=== PATIENT | male | born 1990 | race Caucasian/White ===

== ENCOUNTER 2018-08-21 15:07 | Emergency (ER) | payer OTHER ==
[~2018-08-21] VITALS: Ht 177.8 cm; Wt 106.1 kg
[2018-08-21 15:15] VITALS: BP 132/83
[2018-08-21] MEDS ORDERED: NORCO 5-325 TA1 EACH PO ×2 (15:18→15:27)
[2018-08-21] MEDS ORDERED: IBUPROFEN 800800 MG PO (15:27)
== END 2018-08-21 15:38 | disposition home or self-care (01) ==
LOC: M.ERS 15:07
DX: S62.91XA Unspecified fracture of right hand, initial encounter for closed fracture (principal); W22.8XXA Striking against or struck by other objects, initial encounter; Y93.89 Activity, other specified; Y92.89 Other specified places as the place of occurrence of the external cause; Y99.8 Other external cause status

== ENCOUNTER 2019-07-19 20:06 | Emergency (ER) | payer OTHER ==
[~2019-07-19] VITALS: Ht 180.3 cm; Wt 97.1 kg
[~2019-07-19 20:06] MED LIST: IBUPROFEN 800800 MG PO; NORCO 5-325 TA1 EACH PO
[2019-07-19] MEDS ORDERED: AUGMENTIN 875-1 EACH PO (20:39)
[2019-07-19 20:52] VITALS: BP 128/76
== END 2019-07-19 20:52 | disposition home or self-care (01) ==
LOC: M.ERS 20:06
DX: J06.9 Acute upper respiratory infection, unspecified (principal); F17.210 Nicotine dependence, cigarettes, uncomplicated

== ENCOUNTER 2020-10-07 12:28 | Emergency (ER) | payer OTHER ==
[~2020-10-07] VITALS: Ht 180.3 cm; Wt 81.7 kg
[~2020-10-07 12:28] MED LIST changes: +AUGMENTIN 875-1 EACH PO
[2020-10-07 13:01] LABS: ABSOLUTE EOSINOPHILS 0.2 thou/uL (0.0-0.7); ABSOLUTE LYMPHOCYTES 2.4 thou/uL (0.8-5.3); ABSOLUTE MONOCYTES 0.6 thou/uL (0.0-1.2); ABSOLUTE NEUTROPHILS 3.8 thou/uL (1.6-8.1); BASOPHILS 0.5 %; EOSINOPHILS 2.7 %; HEMATOCRIT 44.2 % (42.0-52.0); HEMOGLOBIN 15.3 gm/dL (14.0-18.0); LYMPHOCYTES 34.5 %; MCHC 34.6 g/dL (28.0-37.0); MCV 89.8 fL (80.0-100.0); MPV 8.2 fl. (7.2-11.1); NUCLEATED RBCS 0 /100WBC; PLATELET COUNT* 244 thou/uL (150-400); POLYS 54.3 %; RBC 4.92 mil/uL (4.50-6.00); RDW-CV 13.5 % (10.5-14.5); WBC 6.9 thou/uL (4.0-11.0)
[2020-10-07 13:08] LABS: CALCIUM 8.8 mg/dL (8.5-10.1); POTASSIUM 3.8 mmol/L (3.5-5.1)
[2020-10-07 13:13] LABS: ALBUMIN 4.1 g/dL (3.4-5.0); TOTAL BILIRUBIN 0.8 mg/dL (<0.1-1.0); TOTAL PROTEIN 7.2 g/dL (6.4-8.2)
[2020-10-07 13:39] LABS: URINE BILIRUBIN NEGATIVE (Negative); URINE BLOOD TRACE (Negative); URINE CLARITY CLEAR; URINE COLOR YELLOW; URINE GLUCOSE-RANDOM NEGATIVE (Negative); URINE KETONES NEGATIVE (Negative); URINE LEUKOCYTES-REFLEX NEGATIVE (Negative); URINE NITRITE-REFLEX NEGATIVE (Negative); URINE PROTEIN NEGATIVE (Negative); URINE UROBILINOGEN 0.2 E.U./dl (0.2-1.0)
[2020-10-07 14:30] VITALS: BP 117/78
[2020-10-07] MEDS ORDERED: FLOMAX0.4 MG PO (14:30)
[2020-10-07] MEDS ORDERED: HYDROCODON-ACE1 EAC7 PO (14:30)
[2020-10-07] MEDS ORDERED: IBUPROFEN 800800 M1 PO (14:30)
[2020-10-07] MEDS ORDERED: ZOFRAN ODT4 MG DISSOLVE (14:30)
== END 2020-10-07 14:30 | disposition home or self-care (01) ==
LOC: M.ERS 12:28
PROVIDERS: Emergency Medicine Emergency Medical Services
DX: N20.0 Calculus of kidney (principal)

== ENCOUNTER 2020-10-23 21:10 | Emergency (ER) | payer OTHER ==
[~2020-10-23] VITALS: Ht 180.3 cm; Wt 81.7 kg
[~2020-10-23 21:10] MED LIST changes: +FLOMAX0.4 MG PO; +HYDROCODON-ACE1 EAC7 PO; +IBUPROFEN 800800 M1 PO; +ZOFRAN ODT4 MG DISSOLVE
[2020-10-23] MEDS ORDERED: CILOXAN5 ML EA. EYE (22:13)
[2020-10-23 22:24] VITALS: BP 112/72
== END 2020-10-23 22:24 | disposition home or self-care (01) ==
LOC: M.ERS 21:10
DX: S05.02XA Injury of conjunctiva and corneal abrasion without foreign body, left eye, initial encounter (principal); F17.210 Nicotine dependence, cigarettes, uncomplicated; X58.XXXA Exposure to other specified factors, initial encounter; Y93.9 Activity, unspecified; Y92.89 Other specified places as the place of occurrence of the external cause; Y99.8 Other external cause status

== ENCOUNTER 2020-11-01 20:21 | Emergency (ER) | payer OTHER ==
[~2020-11-01] VITALS: Ht 180.3 cm; Wt 81.7 kg
[~2020-11-01 20:21] MED LIST changes: +CILOXAN5 ML EA. EYE
[2020-11-02 00:20] LABS: URINE BILIRUBIN NEGATIVE (Negative); URINE BLOOD 3+ (Negative); URINE CLARITY CLEAR; URINE COLOR YELLOW; URINE GLUCOSE-RANDOM NEGATIVE (Negative); URINE KETONES NEGATIVE (Negative); URINE LEUKOCYTES-REFLEX NEGATIVE (Negative); URINE NITRITE-REFLEX NEGATIVE (Negative); URINE PROTEIN NEGATIVE (Negative); URINE UROBILINOGEN 0.2 E.U./dl (0.2-1.0)
[2020-11-02 00:41] LABS: ABSOLUTE BASOPHILS 0.1 thou/uL (0.0-0.2); ABSOLUTE EOSINOPHILS 0.3 thou/uL (0.0-0.7); ABSOLUTE LYMPHOCYTES 3.7 thou/uL (0.8-5.3); ABSOLUTE MONOCYTES 0.9 thou/uL (0.0-1.2); ABSOLUTE NEUTROPHILS 5.3 thou/uL (1.6-8.1); HEMOGLOBIN 13.9 gm/dL (14.0-18.0); LYMPHOCYTES 35.5 %; MCH 31.3 pg (26.0-34.0); MCHC 34.9 g/dL (28.0-37.0); MCV 89.6 fL (80.0-100.0); MONOCYTES 8.9 %; MPV 8.6 fl. (7.2-11.1); NUCLEATED RBCS 0 /100WBC; PLATELET COUNT* 243 thou/uL (150-400); POLYS 51.6 %; RBC 4.46 mil/uL (4.50-6.00); RDW-CV 13.7 % (10.5-14.5); WBC 10.3 thou/uL (4.0-11.0)
[2020-11-02 00:45] LABS: CALCIUM 8.3 mg/dL (8.5-10.1); CREATININE 1.1 mg/dL (0.6-1.3); POTASSIUM 3.5 mmol/L (3.5-5.1)
[2020-11-02 00:49] LABS: ALBUMIN 3.7 g/dL (3.4-5.0); TOTAL BILIRUBIN 0.5 mg/dL (<0.1-1.0); TOTAL PROTEIN 6.6 g/dL (6.4-8.2)
[2020-11-02 00:56] LABS: CASTS None Seen /LPF (None Seen); MUCUS 0-3 Light strn/LPF (None Seen); SQUAMOUS 0-3 Few /LPF (0-3)
[2020-11-02 00:57] LABS: BACTERIA-REFLEX 1-9 Few /HPF (None Seen); CRYSTALS None Seen /LPF (None Seen); URINE RBC >20 Many /HPF (0-2); URINE WBC-REFLEX 0-5 Rare /HPF (0-5)
[2020-11-02] MEDS ORDERED: HYDROCODON-ACE1 EAC7 PO (03:02)
[2020-11-02] MEDS ORDERED: TORADOL 10 MG T10 MG PO (03:02)
[2020-11-02] MEDS ORDERED: ZOFRAN ODT4 MG PO (03:02)
[2020-11-02 03:11] VITALS: BP 107/66
== END 2020-11-02 03:11 | disposition home or self-care (01) ==
LOC: M.ERS 20:21
PROVIDERS: Personal Emergency Response Attendant
DX: N23 Unspecified renal colic (principal); N50.811 Right testicular pain; Z87.442 Personal history of urinary calculi

== ENCOUNTER 2020-12-09 08:54 | Emergency (ER) | payer OTHER ==
[~2020-12-09] VITALS: Ht 180.3 cm; Wt 81.7 kg
[~2020-12-09 08:54] MED LIST changes: +TORADOL 10 MG T10 MG PO; +ZOFRAN ODT4 MG PO
[2020-12-09 09:02] VITALS: BP 145/94
[2020-12-09] MEDS ORDERED: FLOMAX0.4 MG PO ×2 (09:04→13:11)
[2020-12-09 09:24] LABS: ABSOLUTE BASOPHILS 0.1 thou/uL (0.0-0.2); ABSOLUTE EOSINOPHILS 0.2 thou/uL (0.0-0.7); ABSOLUTE LYMPHOCYTES 3.7 thou/uL (0.8-5.3); ABSOLUTE MONOCYTES 0.8 thou/uL (0.0-1.2); ABSOLUTE NEUTROPHILS 5.3 thou/uL (1.6-8.1); BASOPHILS 0.5 %; EOSINOPHILS 2.1 %; HEMATOCRIT 41.9 % (42.0-52.0); HEMOGLOBIN 14.9 gm/dL (14.0-18.0); LYMPHOCYTES 36.9 %; MCH 31.6 pg (26.0-34.0); MCHC 35.5 g/dL (28.0-37.0); MCV 89.1 fL (80.0-100.0); MPV 8.6 fl. (7.2-11.1); NUCLEATED RBCS 0 /100WBC; PLATELET COUNT* 251 thou/uL (150-400); POLYS 52.5 %; RBC 4.71 mil/uL (4.50-6.00); RDW-CV 13.6 % (10.5-14.5); WBC 10.1 thou/uL (4.0-11.0)
[2020-12-09 09:38] LABS: CALCIUM 8.7 mg/dL (8.5-10.1); CREATININE 1.2 mg/dL (0.6-1.3); POTASSIUM 3.7 mmol/L (3.5-5.1)
[2020-12-09 09:41] LABS: ALBUMIN 4.1 g/dL (3.4-5.0); TOTAL BILIRUBIN 1.1 mg/dL (<0.1-1.0)
[2020-12-09 11:43] LABS: URINE BILIRUBIN NEGATIVE (Negative); URINE BLOOD 3+ (Negative); URINE CLARITY CLEAR; URINE COLOR YELLOW; URINE GLUCOSE-RANDOM NEGATIVE (Negative); URINE KETONES 1+ (Negative); URINE LEUKOCYTES-REFLEX NEGATIVE (Negative); URINE NITRITE-REFLEX NEGATIVE (Negative); URINE PROTEIN NEGATIVE (Negative); URINE UROBILINOGEN 0.2 E.U./dl (0.2-1.0)
[2020-12-09 12:02] LABS: CASTS None Seen /LPF (None Seen); CRYSTALS None Seen /LPF (None Seen); SQUAMOUS 0-3 Few /LPF (0-3); URINE RBC 0-2 Rare /HPF (0-2); URINE WBC-REFLEX 6-15 Few /HPF (0-5)
[2020-12-09] MEDS ORDERED: NAPROSYN500 MG PO (12:36)
--- NOTE | 2020-12-09 12:58 | NUR ---
PT CURRENTLY REFUSING TO SEE UROLOGY DUE TO BAD PAST EXPERIENCES WITH THAT GROUP. DR LEWIS MADE AWARE AND WILL SPEAK TO THE PATIENT.
[2020-12-09] MEDS ORDERED: HYDROCODON-ACE1 EAC7 PO (13:11)
[2020-12-09] MEDS ORDERED: CIPROFLOXACIN500 M1 PO (13:11)
[2020-12-09 13:17] VITALS: BP 117/63
== END 2020-12-09 13:17 | disposition home or self-care (01) ==
LOC: M.ERS 08:54 → M.TBA-ER 11:34 → M.ERS 13:17
PROVIDERS: Family Medicine
DX: N20.1 Calculus of ureter (principal)

== ENCOUNTER → 2021-02-03 | Outpatient (CLI) | payer OTHER ==
[~2021-02-03] MED LIST changes: +CIPROFLOXACIN500 M1 PO; +NAPROSYN500 MG PO
== END ==
LOC: M.ULTRA 07:17
PROVIDERS: ATTEND Nurse Practitioner Family
DX: R10.9 Unspecified abdominal pain (principal)